=== PATIENT | female | born 1995 | race Caucasian/White ===

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

== ENCOUNTER 2017-06-23 18:43 | Emergency (ER) | payer OTHER ==
[~2017-06-23] VITALS: Ht 165.1 cm; Wt 82.0 kg
[~2017-06-23 18:43] MED LIST: BCPILLS PO
[2017-06-23] MEDS ORDERED: ONDANSETRON 4MG OD TAB PO ONE (19:00)
[2017-06-23 19:04] VITALS: TEMP 36.4; Ht 165.1 cm; Wt 82.0 kg
[2017-06-23] MEDS ORDERED: IUD'IUD (19:06)
[2017-06-23 20:08] LABS: BLOOD UREA NITROGEN 5 mg/dl (7-18); BUN/CREATININE RATIO 9.8 (10-20); CALCIUM 8.6 mg/dl (8.5-10.1); CARBON DIOXIDE 23 mmol/L (21-32); CHLORIDE 107 mmol/L (98-107); CREATININE 0.54 mg/dl (0.60-1.20); GLUCOSE 93 mg/dl (70-99); POTASSIUM 2.8 mmol/L (3.5-5.1); SODIUM 140 mmol/L (136-145)
--- NOTE | 2017-06-23 21:06 | DIAGNOSTIC IMAGING REPORT ---
CT SCAN OF THE BRAIN WITHOUT IV CONTRAST CLINICAL HISTORY: Trauma. Intoxication. COMPARISON STUDY: CT scan of the facial bones dated 12/22/2016. TECHNIQUE: Unenhanced axial CT scan of the brain is performed from the vertex to the skull base. A dose lowering technique was utilized adhering to the principles of ALARA. CT DOSE: Reported separately under the concurrently performed CT scan of the cervical spine. FINDINGS: Brain parenchyma: The brain parenchyma is normal in appearance. There is no hemorrhage, mass effect, or evidence of acute territorial ischemia by CT criteria. Cai-white matter is preserved. No extra-axial fluid collection is seen. Ventricles, sulci, cisterns: Normal in configuration. Intracranial vasculature: The visualized intracranial vasculature at the skull base is normal in appearance. Calvarium: There is no depressed calvarial fracture. Sinuses and mastoids: The visualized paranasal sinuses are clear. The mastoid air cells are well pneumatized. Orbits: The bony orbits are grossly intact. IMPRESSION: No acute intracranial abnormality. Electronically signed by: Bk Rasheed M.D. 06/23/2017 9:04 PM Dictated Date/Time: 06/23/2017 9:03 PM
--- NOTE | 2017-06-23 21:10 | DIAGNOSTIC IMAGING REPORT ---
CT SCAN OF THE CERVICAL SPINE CLINICAL HISTORY: Trauma. Intoxication. COMPARISON STUDY: No priors. TECHNIQUE: CT scan of the cervical spine is performed from the skull base to the upper thoracic spine. Images are reviewed in the axial, sagittal, and coronal planes. IV contrast was not administered for this examination. A dose lowering technique was utilized adhering to the principles of ALARA. CT DOSE: 972.70 mGy.cm FINDINGS: Skeletal structures: The skeletal structures are well mineralized. There is no evidence of fracture or subluxation involving the cervical spine. Vertebral body height and alignment are maintained. There is straightening of the cervical lordosis. The odontoid process and lateral masses are intact. The atlantoaxial articulation is preserved. The spinous processes appear intact. Intervertebral discs: The disc spaces are well maintained. Central canal: Widely patent. Soft tissues: The prevertebral and paraspinous soft tissues are within normal limits. Calvarium: The visualized calvarium at the skull base appears intact. Brain parenchyma: Partially visualized brain parenchyma the skull base is within normal limits. Sinuses and mastoids: The visualized paranasal sinuses are clear. The mastoid air cells are well pneumatized. Lung apices: Clear as visualized. IMPRESSION: There is no evidence of fracture or subluxation involving the cervical spine. Electronically signed by: Bk Rasheed M.D. 06/23/2017 9:08 PM Dictated Date/Time: 06/23/2017 9:02 PM
[2017-06-23 23:19] VITALS: BP 111/61; PULSE 92; O2SAT 98
--- NOTE | 2017-06-24 18:27 | EMERGENCY ROOM VISIT NOTE ---
History Report prepared by Alfonso: Anish Combs Under the Supervision of: Dr. Gennaro Boles M.D. First contact with patient: 18:45 Stated Complaint: ETOH History of Present Illness The patient is a 21 year old female who presents to the Emergency Room for evaluation of constant alcohol intoxication beginning shortly prior to arrival. 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 She states that the patient was drinking vodka. She states that the patient fell at a tailgate near a grill, but she is unsure if she hit her head on it. She thinks she may have. The patient currently complains of nausea. She denies chance of . HPI limited secondary to alcohol intoxication. Source of History: patient, friend History Limited By: intoxication (alcohol) Onset: Shortly prior to arrival Quality: other (alcohol intoxication) Timing: constant Associated Symptoms: + nausea Review of Systems ROS limited secondary to alcohol intoxication. Past Medical & Surgical Unobtainable secondary to alcohol intoxication. Family History Unobtainable secondary to alcohol intoxication. Social History Smoking Status: Never Smoker Unobtainable secondary to alcohol intoxication. Current/Historical Medications Miscellaneous Medications Iud's (Paragard Intrauterine Internist Medical Doctor Md) Allergies Coded Allergies: No Known Allergies (Unverified , 06/23/17) Physical Exam Vital Signs Date Time Temp Pulse Resp B/P (MAP) Pulse Ox O2 Delivery O2 Flow Rate FiO2 06/23/17 23:19 92 18 111/61 98 Room Air 06/23/17 22:00 94 18 116/78 99 Room Air 06/23/17 20:30 71 18 106/66 98 Room Air 06/23/17 19:40 60 06/23/17 19:30 65 18 105/57 98 Room Air 06/23/17 19:04 36.4 83 20 128/63 100 Room Air Physical Exam Constitutional: Vital signs reviewed. Eyes: Pupils are equal round reactive to light. Conjunctiva are noninjected. ENT: NC/AT. Pharynx is clear without erythema or exudate. Mucous membranes are moist. Neck supple without meningeal signs. No midline tenderness to the cervical spine. Respiratory: Clear to auscultation bilaterally. Breath sounds are equal bilaterally. Cardiovascular: Regular rate and rhythm. No rubs or gallops. GI: Soft, nondistended and nontender. Bowel sounds are present. Musculoskeletal: No evidence of trauma. Integumentary: No cyanosis. Neurological: The patient appears intoxicated. Moves all extremities. Psychiatric: Anxious. Medical Decision & Procedures ER Provider Diagnostic Interpretation: CT results as stated below per my review and radiologist interpretation. CT SCAN OF THE BRAIN WITHOUT IV CONTRAST FINDINGS: Brain parenchyma: The brain parenchyma is normal in appearance. There is no hemorrhage, mass effect, or evidence of acute territorial ischemia by CT criteria. Cai-white matter is preserved. No extra-axial fluid collection is seen. Ventricles, sulci, cisterns: Normal in configuration. Intracranial vasculature: The visualized intracranial vasculature at the skull base is normal in appearance. Calvarium: There is no depressed calvarial fracture. Sinuses and mastoids: The visualized paranasal sinuses are clear. The mastoid air cells are well pneumatized. Orbits: The bony orbits are grossly intact. IMPRESSION: No acute intracranial abnormality. Electronically signed by: Bk Rasheed M.D. 06/23/2017 9:[address] SCAN OF THE CERVICAL SPINE FINDINGS: Skeletal structures: The skeletal structures are well mineralized. There is no evidence of fracture or subluxation involving the cervical spine. Vertebral body height and alignment are maintained. There is straightening of the cervical lordosis. The odontoid process and lateral masses are intact. The atlantoaxial articulation is preserved. The spinous processes appear intact. Intervertebral discs: The disc spaces are well maintained. Central canal: Widely patent. Soft tissues: The prevertebral and paraspinous soft tissues are within normal limits. Calvarium: The visualized calvarium at the skull base appears intact. Brain parenchyma: Partially visualized brain parenchyma the skull base is within normal limits. Sinuses and mastoids: The visualized paranasal sinuses are clear. The mastoid air cells are well pneumatized. Lung apices: Clear as visualized. IMPRESSION: There is no evidence of fracture or subluxation involving the cervical spine. Electronically signed by: Bk Rasheed M.D. 06/23/2017 9:08 PM Laboratory Results 06/23/17 19:28 Test 06/23/17 19:28 Anion Gap 9.0 mmol/L (3-11) Est Creatinine Clear Calc Drug Dose 177.2 ml/min Estimated GFR () > 150.0 Estimated GFR (Non- 136.8 BUN/Creatinine Ratio 9.8 (10-20) Calcium Level 8.6 mg/dl (8.5-10.1) Ethyl Alcohol mg/dL 234.0 mg/dl (0-3) Laboratory results as reviewed by me. ED Course 1846: The patient was evaluated in room B3B. A complete history and physical exam was performed. 1899: Ordered Zofran Odt 4 mg PO. 2214: I reassessed the patient. She is awake and has no complaints. Will complete an ambulatory trial. Medical Decision This is a 20-year-old female presents with altered mental status for presumed ALT: Intoxication as well as a head injury. I did perform a limited focused review of portions of the patient's old chart on the electronic medical record. The patient has had no recent pertinent visits to this hospital. Additional history was obtained from her friends and the nurse due to the patient's condition. Differential diagnosis: Etiologies such as alcohol intoxication, hypoglycemia, electrolyte abnormality, illicit drug use, contusion, intracranial hemorrhage as well as others were considered. ER treatment provided: The patient was placed on a continuous distance education director and pulse oximetry. Diagnostic studies: I did order and review the patient's lab work including an alcohol level and PRP. CT scan of the head and cervical spine was ordered. I did review the images myself as well as radiology report. There is no evidence of fracture or intracranial hemorrhage. Disposition: On reassessment the patient is awake and alert. Neurological exam is unremarkable. The patient is feeling better. She is able to ambulate. She was discharged with her friends in good condition. Referral: The patient was referred back to their [facility] for follow-up in 2 to 3 days for recheck and further evaluation. Medication Reconcilliation Current Medication List: was personally reviewed by me Blood Pressure Screening Patient's blood pressure: Normal blood pressure Blood pressure disposition: Did not require urgent referral Impression Primary Impression: Alcohol intoxication Additional Impressions: Head injury Fall Scribe Attestation The scribe's documentation has been prepared under my direct and personally reviewed by me in its entirety. I confirm that the note above accurately reflects all work, treatment, procedures, and medical decision making performed by me. Departure Information Dispostion Home / Self-Care Referrals Gisele Temple DO (PCP) Forms HOME CARE DOCUMENTATION FORM, IMPORTANT VISIT INFORMATION Patient Instructions ED Alcohol Intoxication, ED Head Injury Closed, My [facility] Additional Instructions Follow up with [facility]. Avoid drinking alcohol in excess. Do not drink any alcohol for the next 48 hours. Return for any worsening symptoms or if you develop any new symptoms such as severe headache or vomiting. Problem Qualifiers Primary Impression: Alcohol intoxication Complication of substance-induced condition: uncomplicated Qualified Codes: F10.920 - Alcohol use, unspecified with intoxication, uncomplicated Additional Impressions: Head injury Encounter type: initial encounter Qualified Codes: S09.90XA - Unspecified injury of head, initial encounter Fall Encounter type: initial encounter Qualified Codes: W19.XXXA - Unspecified fall, initial encounter
== END 2017-06-23 23:27 | disposition home or self-care (01) ==
LOC: EDBD 18:43 → C.EDB 18:45
DX: F10.129 Alcohol abuse with intoxication, unspecified (principal); Y90.7 Blood alcohol level of 200-239 mg/100 ml; S09.90XA Unspecified injury of head, initial encounter; W19.XXXA Unspecified fall, initial encounter